=== PATIENT | male | born 1980 | race Hispanic/Latino ===

== ENCOUNTER 2020-09-12 13:30 | Emergency (ER) | payer SELFPAY ==
[2020-09-12] MEDS ORDERED: SODIUM CHLORIDE 0.9% 1000ML 1,000 ML IV ONE (15:10)
[2020-09-12 15:42] LABS: BASOPHILS % (AUTO) 1.4 % (0.0-5.0); EOSINOPHILS % (AUTO) 3.6 % (0.0-8.0); HEMATOCRIT 46.7 % (42-54); LYMPHOCYTES % (AUTO) 24.8 % (21.0-51.0); MEAN CORPUSCULAR HEMOGLOBIN 30.5 pg (27.0-33.0); MEAN CORPUSCULAR HGB CONC 33.2 g/dL (32.0-36.0); MEAN CORPUSCULAR VOLUME 91.9 fL (79-99); MONOCYTES % (AUTO) 9.4 % (3.0-13.0); NEUTROPHILS % (AUTO) 60.1 % (40.0-77.0); PLATELET COUNT (AUTO) 335 K/uL (130-400); RED BLOOD CELL COUNT(AUTO) 5.08 MIL/uL (4.50-6.20); RED CELL DISTRIBUTION WIDTH 12.2 % (11.0-15.5); WHITE BLOOD COUNT (AUTO) 9.4 K/uL (4.8-10.8)
[2020-09-12 15:46] LABS: RAPID GROUP A STREP NEGATIVE (NEGATIVE)
[2020-09-12 15:54] LABS: CREATININE 1.3 mg/dL (0.5-1.5); POTASSIUM 4.3 mmol/L (3.5-5.1)
[2020-09-12 15:58] LABS: ALBUMIN 3.4 g/dL (3.5-5.0); BILIRUBIN,TOTAL 0.2 mg/dL (0.2-1.0); TOTAL PROTEIN, SERUM 7.2 g/dL (6.0-8.3)
[2020-09-12 16:01] LABS: APPEARANCE,URINE Clear (CLEAR); BILIRUBIN,URINE Negative (NEGATIVE); COLOR,URINE Yellow (YELLOW); GLUCOSE, URINE (UA) >=1000 mg/dL (NEGATIVE); KETONES,URINE Negative (NEGATIVE); LEUKOCYTE ESTERASE ,URINE Negative (NEGATIVE); NITRATE,URINE Negative (NEGATIVE); OCCULT BLOOD,URINE Negative (NEGATIVE); PH,URINE 5.5 (5.0-8.0); PROTEIN,URINE Trace mg/dL (NEGATIVE)
[2020-09-12 16:20] LABS: BACTERIA,URINE Few /HPF (None Seen); MUCUS,URINE Few LPF (None Seen); SQUAMOUS EPITHELIAL CELL,UR 0-2 /HPF (0-2)
== END 2020-09-12 16:31 | disposition home or self-care (01) ==
LOC: EDH 13:30
DX: K52.89 Other specified noninfective gastroenteritis and colitis (principal); Z20.828 Contact with and (suspected) exposure to other viral communicable diseases; Z72.0 Tobacco use
CPT/HCPCS: 36415; 71045; 80053; 81001; 82550; 83605; 83690; 85025; 87040 ×2; 87426; 87804 ×2; 87880; 96360; 99284; J7030; U0003

== ENCOUNTER 2021-03-29 12:51 | Emergency (ER) | payer OTHER ==
[~2021-03-29] VITALS: Ht 175.3 cm; Wt 104.3 kg
[2021-03-29 12:52] VITALS: BP 139/75
[2021-03-29 15:28] VITALS: BP 125/77
[2021-03-29] MEDS ORDERED: CIPROFLOXACIN HCL 0.2%/HYDROCORT 1% 10 ML OTIC SUSP ONE (15:37)
[2021-03-29] MEDS ORDERED: AZITHROMYCIN 250 MG TABLET PO STA (16:28)
[2021-03-29] MEDS ORDERED: AZITHROMYCIN 250 MG TABLET PO ONE (17:20)
[2021-03-29] MEDS ORDERED: ALBU8.5H8 IH (17:38)
[2021-03-29] MEDS ORDERED: IBUP-2088 PO (17:38)
[2021-03-29] MEDS ORDERED: AZIT500T2 PO (17:38)
[2021-03-29] MEDS ORDERED: IVER3TAB PO (17:40)
[2021-03-29] MEDS ORDERED: IBUPROFEN 600 MG TABLET PO STA (17:45)
[2021-03-29 17:54] VITALS: BP 154/76
== END 2021-03-29 18:08 | disposition home or self-care (01) ==
LOC: EDH 12:51
DX: U07.1 COVID-19 (principal); F31.9 Bipolar disorder, unspecified; I10 Essential (primary) hypertension; F20.9 Schizophrenia, unspecified
CPT/HCPCS: 71045; 87635; 87804 ×2; 87880; 99284; C9803